=== PATIENT | female | born 1950 | race African-American/Black ===

== ENCOUNTER 2019-09-05 12:32 | Day surgery (SDC) | payer MEDICARE, MEDICAID ==
[~2019-09-05] VITALS: Ht 165.1 cm; Wt 95.3 kg
[~2019-09-05 12:32] MED LIST: HEPARIN SODIUM 1,000 UNIT/1ML VIAL IV ONE; NITROGLYCERIN 50MCG/ML 10ML VIAL (CATH LAB) IV ONE; PHENYLEPHRINE 100MCG/ML 10ML VIAL (CATH LAB) IV ONE
[2019-09-05] MEDS ORDERED: GLIP5TAB12 PO (14:50)
[2019-09-05] MEDS ORDERED: QUIN10TA28 PO (14:50)
[2019-09-05] MEDS ORDERED: ALBU18HF2 IH (14:50)
[2019-09-05] MEDS ORDERED: ASPI-1497 PO (14:50)
[2019-09-05] MEDS ORDERED: SIMV-43 PO (14:50)
[2019-09-05] MEDS ORDERED: HYDR-4009 PO (14:50)
[2019-09-05] MEDS ORDERED: ALLO100T PO (14:50)
[2019-09-05] MEDS ORDERED: FLUT15.844 NS (14:50)
[2019-09-05] MEDS ORDERED: METH-612 PO (14:50)
[2019-09-05] MEDS ORDERED: RANI150T7 PO (14:50)
[2019-09-05] MEDS ORDERED: DIAZ10TA4 PO (14:50)
[2019-09-05] MEDS ORDERED: GABA800T97 PO (14:50)
[2019-09-05] MEDS ORDERED: OMEP20TA2 PO (14:50)
[2019-09-05] MEDS ORDERED: TRIA1TAB92 PO (14:50)
[2019-09-05] MEDS ORDERED: MV-M1TAB19 PO (14:58)
[2019-09-05] MEDS ORDERED: CYAN500T66 PO (14:58)
[2019-09-05] MEDS ORDERED: OMEG1CAP46 PO (14:58)
[2019-09-05] MEDS ORDERED: MILK500C PO (14:58)
[2019-09-05] MEDS ORDERED: MULT-1146 PO (14:58)
[2019-09-05] MEDS ORDERED: LIDOCAINE HCL 1% 20ML VIAL (Pyxis) INJ ONE (16:12)
[2019-09-05] MEDS ORDERED: IODIXANOL 320MG/ML 100 ML BOTTLE IV ONE (16:13)
[2019-09-05] MEDS ORDERED: FENTANYL CITRATE/PF 50MCG/ML 2ML VIAL ONE (16:49)
[2019-09-05] MEDS ORDERED: MIDAZOLAM HCL 2 MG/2 ML VIAL ONE (16:49)
[2019-09-05] MEDS ORDERED: ACETAMINOPHEN 325MG TABLET PO PRN (17:30)
[2019-09-05] MEDS ORDERED: ATROPINE SULFATE 1MG/10ML SYR IV PRN (17:30)
[2019-09-05] MEDS ORDERED: ONDANSETRON HCL 4MG/2ML INJ IV PRN (17:30)
== END 2019-09-05 19:30 | disposition home or self-care (01) ==
LOC: CCL 12:32
PROVIDERS: ATTEND Specialist
DX: R07.9 Chest pain, unspecified (principal); I25.110 Atherosclerotic heart disease of native coronary artery with unstable angina pectoris; E11.9 Type 2 diabetes mellitus without complications; E78.5 Hyperlipidemia, unspecified; I11.9 Hypertensive heart disease without heart failure; K44.9 Diaphragmatic hernia without obstruction or gangrene; K21.9 Gastro-esophageal reflux disease without esophagitis; Z79.84 Long term (current) use of oral hypoglycemic drugs; Z79.82 Long term (current) use of aspirin; Z79.899 Other long term (current) drug therapy; Z82.49 Family history of ischemic heart disease and other diseases of the circulatory system; Z98.890 Other specified postprocedural states; Z87.891 Personal history of nicotine dependence
CPT/HCPCS: 82962; 93458; C1769; C1893; J1644; J2250; J2370; J3010; J3490; Q9967; 99152; G0500